=== PATIENT | male | born 1955 | race Caucasian/White ===

== ENCOUNTER 2017-01-28 08:22 | Day surgery (SDC) | payer OTHER ==
[2017-01-23 11:49] VITALS: BMI 30.9
[~2017-01-28 08:22] MED LIST: LACTATED RINGERS 1,000 ML IV SCH
[2017-01-28 09:21] VITALS: RESP 16; TEMP 98
[2017-01-28] MEDS ORDERED: fentaNYL (PF) 50 MCG/ML 2 ML AMP ONE (09:42)
[2017-01-28] MEDS ORDERED: PROPOFOL 10 MG/ML 20 ML VIAL IV ONE (09:42)
[2017-01-28] MEDS ORDERED: MIDAZOLAM 2 MG/2 ML VIAL ONE (09:42)
[2017-01-28] MEDS ORDERED: LIDOCAINE 1% INJ 10MG/ML (20 ML MDV) ONE (09:42)
--- NOTE | 2017-01-28 10:08 | P.PCN ---
Date of Procedure: 01/28/17 Preoperative Diagnosis: Postoperative Diagnosis: Procedure(s) Performed: Procedure: Total colonoscopy. Preoperative diagnosis: Screening for neoplasia. Postoperative diagnosis: Diverticulosis with no evidence of acute diverticulitis , strictures, polyps or cancer. Preparation: HalfLytely prep. Sedation: Was provided by anesthesia. Brief clinical history: The patient is a 61-year-old male who is referred for this evaluation for screening for neoplasia. He has no change in bowel habits or anemia. He has intermittent rectal bleeding which he attributes to hemorrhoids. The patient had 2 prior colonoscopies one around 8 years ago and one around 12 years ago. No family history of colon cancer or finding of polyps in the past. Procedure: With the patient on his left lateral decubitus position and after informed consent and adequate sedation, the perianal area was inspected and it did not show any fissures or fistulas. There were no masses felt on digital rectal examination. The Olympus CFQ 160L video colonoscope was then inserted in the rectum in the usual fashion and advanced to the cecum. There were few diverticular orifices seen scattered in the sigmoid and occasional small diverticular orifice was seen around the hepatic flexure but there was no evidence of acute diverticulitis or strictures. The mucosa appeared healthy. No polyps or tumors were seen. I retroflexed the endoscope in the rectum before the endoscope was withdrawn. Low-grade internal hemorrhoids were noted with no evidence of bleeding at the time of this exam. The patient tolerated the procedure well. Plan: The patient was reassured. Discussed dietary measures and local care for hemorrhoids. Further plans can be made based on his course. For colon cancer screening, I recommended repeat exam in 10 years. Implants: Indications for Procedure: Operative Findings: Description of Procedure:
[2017-01-28 10:24] VITALS: BP 132/85; PULSE 53
== END 2017-01-28 10:39 | disposition home or self-care (01) ==
LOC: ORWHC2ENDO 08:22
DX: Z12.11 Encounter for screening for malignant neoplasm of colon (principal); K57.30 Diverticulosis of large intestine without perforation or abscess without bleeding; K64.8 Other hemorrhoids; I10 Essential (primary) hypertension; E78.5 Hyperlipidemia, unspecified; I48.91 Unspecified atrial fibrillation; Z79.899 Other long term (current) drug therapy
CPT/HCPCS: J2250; J2001; J3010; J2704; G0121

== ENCOUNTER 2018-08-18 16:47 | Emergency (ER) | payer OTHER ==
[2018-08-18] MEDS ORDERED: DIPH,PERTUS(ACELL)TETVAC-LF 0.5 ML VIAL IM ONE (16:55)
[2018-08-18] MEDS ORDERED: AMOXIC-POT CLAV 875MG STARTER 2 EACH TABLET PO STA (16:55)
--- NOTE | 2018-08-18 17:32 | ED ---
Animal Bite HPI - General Chief Complaint: Animal Bite Stated Complaint: cat bite Time Seen by Provider: 08/18/18 16:54 Source: patient Mode of arrival: ambulatory Limitations: no limitations - History of Present Illness Initial Comments: 63-year-old male past history of hypertension presenting today for chief complaint of Bite. Patient states he was bit on his left hand near the base of thumb, he states it was a very small bite he feels is superficial. He states he has had this Was a stray for the past 7 days, he states it has been acting sick with upper respiratory symptoms and he was going to take it to the vet today when he attempted to put the cat in a cage. Bit his left hand. Patient called his secondary and who recommended presentation to the emergency department. Remainder of ROS (-) negative, patient denies any recent fever, chills, shortness of breath, chest pain, back pain, abdominal pain, nausea or vomiting, numbness or tingling, dysuria or hematuria, constipation or diarrhea, headaches or visual changes, or any other complaints. - Related Data Home Medications Medication Instructions Recorded Confirmed Aspirin [Adult Low Dose Aspirin EC] 81 mg PO BID 01/23/17 01/28/17 Cholecalciferol [Vitamin D3] 1,000 unit PO DAILY 01/23/17 08/18/18 Flecainide Acetate [Tambocor] 100 mg PO Q12HR 01/23/17 08/18/18 Krill Oil Cap 300 mg PO DAILY 01/23/17 08/18/18 Losartan/Hydrochlorothiazide 1 each PO DAILY 01/23/17 08/18/18 [Losartan-Hctz 100-12.5 mg Tab] Potassium Chloride [Klor-Con 20] 20 meq PO DAILY 01/23/17 08/18/18 Simvastatin [Zocor] 20 mg PO HS 01/23/17 08/18/18 Ubidecarenone [Co Q-10] 100 mg PO DAILY 01/23/17 08/18/18 amLODIPine [Norvasc] 5 mg PO DAILY 01/23/17 08/18/18 Allergies Allergy/AdvReac Type Severity Reaction Status Date / Time No Known Allergies Allergy Verified 08/18/18 16:51 Review of Systems ROS Statement: Those systems with pertinent positive or pertinent negative responses have been documented in the HPI. ROS Other: All systems not noted in ROS Statement are negative. Past Medical History Past Medical History: Atrial Fibrillation, Hyperlipidemia, Hypertension Additional Past Medical History / Comment(s): rectal bleeding, hx hemorrhoids, History of Any Multi-Drug Resistant Organisms: None Reported Past Surgical History: Heart Catheterization, Hernia Repair, Orthopedic Surgery , Tonsillectomy Additional Past Surgical History / Comment(s): rt knee surgery x 2, surgery for fx nose, Past Anesthesia/Blood Transfusion Reactions: Motion Sickness Additional Past Anesthesia/Blood Transfusion Reaction / Comment(s): "did not feel good coming out" of anesthesia Past Psychological History: No Psychological Hx Reported Smoking Status: Former smoker Past Alcohol Use History: Occasional Past Drug Use History: Marijuana - Past Family History Mother Family Medical History: Cancer Additional Family Medical History / Comment(s): melanoma General Exam - General Exam Comments Initial Comments: General: The patient is awake and alert, in no distress, and does not appear acutely ill. Eye: Pupils are equal, round and reactive to light, extra-ocular movements are intact. No nystagmus. There is normal conjunctiva bilaterally. No signs of icterus. Ears, nose, mouth and throat: There are moist mucous membranes and no oral lesions. Neck: The neck is supple, there is no tenderness or JVD. Cardiovascular: There is a regular rate and rhythm. No murmur, rub or gallop is appreciated. Respiratory: Lungs are clear to auscultation, respirations are non-labored, breath sounds are equal. No wheezes, stridor, rales, or rhonchi. Musculoskeletal: Normal ROM, no tenderness. Strength 5/5. Sensation intact. Pulses equal bilaterally 2+. Neurological: A&O x 3. CN II-XII intact, There are no obvious motor or sensory deficits. Coordination appears grossly intact. Speech is normal. Skin: Skin is warm and dry and no rashes. Small pinpoint bite at the MTP joint of the left hand thumb. No active bleeding, appears superficial, no surrounding erythema. Psychiatric: Cooperative, appropriate mood & affect, normal judgment. Limitations: no limitations Course Vital Signs 08/18/18 08/18/18 16:49 20:15 Temperature 98.0 F 97.9 F Pulse Rate 68 75 Respiratory 18 17 Rate Blood Pressure 178/105 172/105 O2 Sat by Pulse 99 99 Oximetry Medical Decision Making - Medical Decision Making Patient's tetanus updated. Given unwell appearance of cat rabies prophylaxis administered, imcluding human immune globulin and vaccination. Patient given prescription for follow-up injections. Patient instructed to take the cat to the water quality assistant for quarantine and further evaluation. Pt agreeable with plan. Pt started on abx. Risk/signs of infection discussed, return parameters discussed. Discussed case with attending provider agree with the impression and plan. Pt discharged in stable condition appearing well. Case discussed in detail Dr. Marcelino who agrees with impression and plan. Disposition Clinical Impression: Cat bite, Need for post exposure prophylaxis for rabies Disposition: HOME SELF-CARE Instructions: Rabies Immune Globulin (By injection), Animal Bite (ED) Additional Instructions: Please use medication as discussed. Please follow-up with family doctor in the next 2 days. Please return to hospital, pediatric floor for post exposure of prophlaxyis on Day 3 (08/21), Day 7 and Day 14. Please keep cat quarantined for the next 10 days and seen by water quality assistant. Please return to emergency room if the symptoms increase or worsen or for any other concerns. Is patient prescribed a controlled substance at d/c from ED?: No Referrals: None,Stated [Primary Care Provider] - 1-2 days [facility] [NON-STAFF] - 1-2 days Time of Disposition: 17:31
[2018-08-18] MEDS ORDERED: RABIES IMMUNE GLOB 150 UNIT/ML 10 ML VIAL IM ONE (17:56)
[2018-08-18] MEDS ORDERED: RABIES VACC,HUMAN DIPLOID (PF) 2.5 UNIT KIT IM ONE (18:25)
[2018-08-18 20:26] VITALS: BP 172/105; PULSE 75; RESP 17; TEMP 97.9
== END 2018-08-18 20:17 | disposition home or self-care (01) ==
LOC: EC 16:47
DX: S61.052A Open bite of left thumb without damage to nail, initial encounter (principal); Z20.3 Contact with and (suspected) exposure to rabies; Z23 Encounter for immunization; E78.5 Hyperlipidemia, unspecified; I10 Essential (primary) hypertension; I48.91 Unspecified atrial fibrillation; Z79.82 Long term (current) use of aspirin; Z79.899 Other long term (current) drug therapy; Z95.5 Presence of coronary angioplasty implant and graft; Z87.891 Personal history of nicotine dependence; W55.01XA Bitten by cat, initial encounter
CPT/HCPCS: 90375; 90471; 90675; 90715; 96372; 99283

== ENCOUNTER → 2024-06-21 | Outpatient (CLI) | payer MEDICARE ==
[2024-06-21 15:04] LABS: Basophils # (A) 0.01 X 10*3/uL (0.00-0.10); Basophils % (A) 0.3 %; Eosinophils # (A) 0.22 X 10*3/uL (0.04-0.35); HCT 45.9 % (39.6-50.0); HGB 15.6 g/dL (13.0-17.0); Lymphocytes # (A) 1.26 X 10*3/uL (0.90-5.00); Lymphocytes % (A) 34.2 %; MCH 32.3 pg (27.0-32.0); Mean Platelet Volume 10.1 FL (9.5-12.2); Monocytes # (A) 0.32 X 10*3/uL (0.20-1.00); Monocytes % (A) 8.7 %; NRBC Per 100 WBC 0 X 10*3/uL (0.00-0.01); Neutrophils # (A) 1.86 X 10*3/uL (1.80-7.70); Neutrophils % (A) 50.5 %; Platelet Count 186 X 10*3/uL (140-440); RBC 4.83 X 10*6/uL (4.40-5.60); WBC 3.68 X 10*3/uL (4.50-10.00)
== END | disposition home or self-care (01) ==
LOC: LABPAT 09:10
PROVIDERS: ATTEND Surgery
DX: Z01.818 Encounter for other preprocedural examination (principal); I48.91 Unspecified atrial fibrillation; K40.90 Unilateral inguinal hernia, without obstruction or gangrene, not specified as recurrent; R94.31 Abnormal electrocardiogram [ECG] [EKG]
CPT/HCPCS: 36415; 85025; 86850; 86900; 86901; 93005

== ENCOUNTER 2024-06-29 07:57 | Day surgery (SDC) | payer MEDICARE, OTHER ==
[~2024-06-29 07:57] MED LIST changes: +HYDROmorphone 0.5 MG/0.5 ML SYRINGE IVP PRN; -LACTATED RINGERS 1,000 ML IV SCH; +LIDOCAINE 1% (10MG/ML) FOR IV START INTRADERMA PRN; +fentaNYL (PF) 50 MCG/ML 2 ML AMP IVP PRN
[2024-06-29] MEDS: IV FLUID CONTINUATION 1,000 ML IV ONE ×2 (08:27→12:05)
[2024-06-29 09:06] VITALS: RESP 16
[2024-06-29] MEDS: LACTATED RINGERS 1,000 ML IV SCH (09:07)
[2024-06-29] MEDS: DEXAMETHASONE SOD PHOSPHATE 4 MG/ML 1 ML VIAL IV ONE (09:07)
[2024-06-29] MEDS: ACETAMINOPHEN TAB 500 MG TAB PO PRN (09:07)
[2024-06-29] MEDS: ONDANSETRON 4 MG/2 ML VIAL IVP ONE (09:08)
[2024-06-29] MEDS: HEPARIN SODIUM,PORCINE 5,000 UNIT/ML 1 ML VIAL SQ PRN (09:08)
[2024-06-29] MEDS: MIDAZOLAM 2 MG/2 ML VIAL IV PRN (09:35)
--- NOTE | 2024-06-29 10:21 | P.ANPRN ---
Procedure Note - Anesthesia - Nerve Block Performed Bilateral Transversus Abdominis Single Date of Procedure: 06/29/24 Procedure Start Time: 09:35 Procedure Stop Time: 09:46 Indication: Acute Post-Operative Pain, Requested by Surgeon Sedation Type: Sedate with meaningful contact maintained Preparation: Sterile Prep Position: Supine Needle Gauge: 21 Ultrasound used to visualize needle placement: Yes Ultrasound used to observe medication spread: Yes Injectate: 0.5% Ropivacaine (see comment for volume) Blood Aspirated: No Pain Paresthesia on Injection Noted: No Resistance on Injection: Normal Image Stored and Saved: Yes Events: Uneventful and Well Tolerated (Ropivacaine 0.5% 30 mls diluted with 20 mls of NS, 25 mls were given on each side with a total of 8 mgs of Decadron.)
[2024-06-29] MEDS ORDERED: ROCURONIUM 10 MG/ML (5 ML VIAL) IV ONE (10:27)
[2024-06-29] MEDS ORDERED: DEXAMETHASONE SOD PHOSPHATE 4 MG/ML 1 ML VIAL ONE (10:27)
[2024-06-29] MEDS ORDERED: SUCCINYLCHOLINE CHLORIDE 200 MG/10 ML VIAL IV ONE (10:27)
[2024-06-29] MEDS ORDERED: NEOSTIGMINE 1 MG/ML 10 ML VIAL ONE (10:27)
[2024-06-29] MEDS ORDERED: ROPIVACAINE 5 MG/ML 30 ML VIAL ONE (10:27)
[2024-06-29] MEDS ORDERED: SUGAMMADEX SODIUM 100 MG/ML SYR IV ONE (10:27)
[2024-06-29] MEDS ORDERED: GLYCOPYRROLATE 0.2 MG/ML 2 ML VIAL ONE (10:27)
[2024-06-29] MEDS ORDERED: SODIUM CHLORIDE 0.9% (PF) 10 ML VIAL ONE (10:27)
[2024-06-29] MEDS ORDERED: PROPOFOL 10 MG/ML 20 ML VIAL IV ONE (10:27)
[2024-06-29] MEDS ORDERED: LIDOCAINE 1% INJ 10MG/ML (20 ML MDV) ONE (10:27)
[2024-06-29] MEDS ORDERED: KETOROLAC 15 MG/ML 1 ML VIAL ONE (10:27)
[2024-06-29] MEDS ORDERED: KETAMINE HCL IN 0.9 % NACL 50 MG/5 ML SYRINGE ONE (10:27)
[2024-06-29] MEDS ORDERED: fentaNYL (PF) 50 MCG/ML 2 ML AMP ONE (10:27)
[2024-06-29] MEDS: LIDOCAINE 1%-EPI 1:100,000 20 ML VIAL SQ ONE (10:53)
[2024-06-29] MEDS: LACTATED RINGERS 1,000 ML IV ONE (10:54)
--- NOTE | 2024-06-29 11:25 | P.OP ---
Date of Procedure: 06/29/24 Preoperative Diagnosis: Right inguinal hernia Postoperative Diagnosis: Right inguinal hernia Procedure(s) Performed: Laparoscopic robotic repair of right inguinal hernia Transversus abdominis plane block Anesthesia: KATHIE Surgeon: Evangelist Masters Estimated Blood Loss (ml): 5 Pathology: none sent Condition: stable Disposition: PACU Description of Procedure: The patient's placed on the operating table in the supine position. The patient received general anesthesia. The patient's abdomen was prepped and draped in usual sterile fashion. The skin was anesthetized 1% local Xylocaine at the incision sites. Using an 11 blade a skin incision was made at the umbilicus. The fascia was grasped with a Jermain and then the peritoneal cavity was entered with the Veress needle. Position of the Veress needle was confirmed with a positive drop test. After adequate insufflation a 5 mm trocar was placed into the peritoneal cavity. The Laparoscope was placed the peritoneal cavity. And a robotic 8 mm trocar was placed in the right lateral position and then another 8 mm robotic trochars placed in the left lateral position. The original 5 mm trocar was exchanged for a 12 mm trocar. The patient was placed in reverse Trendelenburg and then the patient was docked to the robot. A four-quadrant transversus abdominis plane block was performed with 1% local Xylocaine. Next the peritoneum over top of the hernia was incised and then using blunt and sharp dissection and electrocautery the hernia sac was dissected free from the floor of the inguinal canal. The hernia sac was completely reduced into the peritoneal cavity. And then using the Pro office machines wirer mesh the hernia was repaired. The peritoneum was then sutured with 20V lock suture. The patient was then undocked the robot. The needle was withdrawn from the peritoneal cavity. The umbilical trocar site was closed with 0 Ethibond suture. The skin was closed interrupted 3-0 Monocryl suture. Dermabond dressing was applied. Patient was sent to recovery in stable condition.
[2024-06-29 11:44] VITALS: TEMP 97.6
[2024-06-29 13:02] VITALS: BP 117/71; PULSE 114
== END 2024-06-29 14:05 | disposition home or self-care (01) ==
LOC: OR 07:57
PROVIDERS: ATTEND Surgery
DX: K40.90 Unilateral inguinal hernia, without obstruction or gangrene, not specified as recurrent (principal); G89.18 Other acute postprocedural pain; I48.91 Unspecified atrial fibrillation; I10 Essential (primary) hypertension; J45.909 Unspecified asthma, uncomplicated; K21.9 Gastro-esophageal reflux disease without esophagitis; R94.31 Abnormal electrocardiogram [ECG] [EKG]; Z79.01 Long term (current) use of anticoagulants; Z79.899 Other long term (current) drug therapy
CPT/HCPCS: 49650; S2900; 64488

== ENCOUNTER 2024-07-04 12:58 | Emergency (ER) | payer MEDICARE ==
[2024-07-04 13:04] VITALS: RESP 18; TEMP 98.1
--- NOTE | 2024-07-04 13:08 | ED ---
General Adult HPI - General Chief complaint: Recheck/Abnormal Lab/Rx Stated complaint: Post Op Site Red Time Seen by Provider: 07/04/24 13:07 Source: patient Mode of arrival: ambulatory Limitations: no limitations - History of Present Illness Initial comments: Stephen is a [id number] gentleman who presents to the emergency department today via private vehicle for a postoperative wound check. Patient states that he had a da Juan David hernia repair on Friday of this week he been doing well postoperatively. Patient states he went to take a shower this morning and noted that the area around each incision was stained and or just red color he does not recall looking this color immediately postop so came to the ER for check. Patient reports there is no pain no tenderness no nausea vomiting no constipation or diarrhea he has been doing well he was only concerned about the skin color changes. - Related Data Home Medications Medication Instructions Recorded Confirmed Cholecalciferol [Vitamin D3] 2,000 unit PO BID 01/23/17 06/29/24 amLODIPine [Norvasc] 5 mg PO DAILY 01/23/17 06/29/24 Albuterol Inhaler [Ventolin Hfa 1 - 2 puff INHALATION Q6H PRN 06/22/24 06/29/24 Inhaler] Apixaban [Eliquis] 5 mg PO BID 06/22/24 06/29/24 Ascorbic Acid [Vitamin C] 500 mg PO DAILY 06/22/24 06/29/24 Cyanocobalamin [Vitamin B-12] 1 tab PO DAILY 06/22/24 06/29/24 Doxazosin [Cardura] 4 mg PO HS 06/22/24 06/29/24 Doxazosin [Cardura] 8 mg PO QAM 06/22/24 06/29/24 Losartan [Cozaar] 100 mg PO DAILY 06/22/24 06/29/24 Magnesium 300 mg PO BID 06/22/24 06/29/24 Thiamine HCl [Vitamin B-1] 1 tab PO DAILY 06/22/24 06/29/24 Zinc Gluconate [Zinc] 25 mg PO DAILY 06/22/24 06/29/24 Previous Rx's Medication Instructions Recorded Acetaminophen Tab [Tylenol] 650 mg PO Q6H #30 tab 06/29/24 Docusate [Colace] 100 mg PO BID #20 capsule 06/29/24 Ibuprofen [Motrin] 600 mg PO Q6HR PRN #40 tab 06/29/24 oxyCODONE HCL [OxyIR] 5 mg PO Q6H PRN 3 Days #10 tab 06/29/24 Allergies Allergy/AdvReac Type Severity Reaction Status Date / Time No Known Allergies Allergy Verified 07/04/24 13:01 Review of Systems ROS Statement: Those systems with pertinent positive or pertinent negative responses have been documented in the HPI. ROS Other: All systems not noted in ROS Statement are negative. Past Medical History Past Medical History: Atrial Fibrillation, Hyperlipidemia, Hypertension Additional Past Medical History / Comment(s): rectal bleeding, hx hemorrhoids, History of Any Multi-Drug Resistant Organisms: None Reported Past Surgical History: Heart Catheterization, Hernia Repair, Orthopedic Surgery, Tonsillectomy Additional Past Surgical History / Comment(s): rt knee surgery x 2, surgery for fx nose, Past Anesthesia/Blood Transfusion Reactions: Motion Sickness Additional Past Anesthesia/Blood Transfusion Reaction / Comment(s): "did not feel good coming out" of anesthesia Past Psychological History: No Psychological Hx Reported Smoking Status: Former smoker Past Alcohol Use History: Occasional Past Drug Use History: Marijuana - Past Family History Mother Family Medical History: Cancer Additional Family Medical History / Comment(s): melanoma Father Family Medical History: CVA/TIA Brother(s) Family Medical History: AFIB, CVA/TIA General Exam - General Exam Comments Initial Comments: Physical Exam GENERAL: Patient is well-developed and well-nourished. Patient is nontoxic and well-hydrated and is in no distress. HENT: Normocephalic, Atraumatic. EYES: PERRL, EOMI PULMONARY: Unlabored respirations. CARDIOVASCULAR: RRR Warm and well perfused extremities ABDOMEN: Non-distended SKIN: Postoperative laparoscopic incisions, appropriate bruising Surrounding the dressings have some orange discoloration consistent with an oxidized iodine or colored prep -coloration removes when the tape is pulled off of the skin : Deferred NEUROLOGIC: Alert and oriented Normal speech Normal gait MUSCULOSKELETAL: Moving all extremities with no apparent injury PSYCHIATRIC: No SI/HI Limitations: no limitations Course Vital Signs 07/04/24 13:01 Temperature 98.1 F Pulse Rate 52 L Respiratory 18 Rate Blood Pressure 121/83 O2 Sat by Pulse 96 Oximetry Medical Decision Making - Medical Decision Making Was pt. sent in by a medical professional or institution (BENJAMIN Berg, FORESTRY SUPPORT SPECIALIST, urgent care, hospital, or fci...) When possible be specific @ -No Did you speak to anyone other than the patient for history (EMS, parent, family, police, friend...)? What history was obtained from this source @ -No Did you review nursing and triage notes (agree or disagree)? Why? @ -I reviewed and agree with nursing and triage notes Were old charts reviewed (outside hosp., previous admission, EMS record, old EKG, old radiological studies, urgent care reports/EKG's, fci records)? Report findings @ -No old charts were reviewed Differential Diagnosis (chest pain, altered mental status, abdominal pain women, abdominal pain men, vaginal bleeding, weakness, fever, dyspnea, syncope, headache, dizziness, GI bleed, back pain, seizure, CVA, palpatations, mental health)? @ -Differential includes infection, bruising, patient from prep, reaction to adhesive for prep EKG interpreted by me (3pts min.). @ -As above X-rays interpreted by me (1pt min.). @ -None done CT interpreted by me (1pt min.). @ -None done U/S interpreted by me (1pt. min.). @ -None done What testing was considered but not performed or refused? (CT, X-rays, U/S, labs)? Why? @ -None What meds were considered but not given or refused? Why? @ -None Did you discuss the management of the patient with other professionals (professionals i.e. BENJAMIN Berg, FORESTRY SUPPORT SPECIALIST, lab, RT, psych nurse, social work instructor, gas attendant, teacher, security control room officer, case filler)? Give summary @ -No Was smoking cessation discussed for >3mins.? @ -No Was critical care preformed (if so, how long)? @ -No Were there social determinants of health that impacted care today? How? (Ho melessness, low income, unemployed, alcoholism, drug addiction, transportation, low edu. Level, literacy, decrease access to med. care, fci, rehab)? @ -No Was there de-escalation of care discussed even if they declined (Discuss DNR or withdrawal of care, Hospice)? DNR status @ -No What co-morbidities impacted this encounter? (DM, HTN, Smoking, COPD, CAD, Cancer, CVA, ARF, Chemo, Hep., AIDS, mental health diagnosis, sleep apnea, morbid obesity)? @ -None Was patient admitted / discharged? Hospital course, mention meds given and route, prescriptions, significant lab abnormalities, going to OR and other pertinent info. @ -Discharged Evaluated physical exam reveals some discoloration of the patient's abdominal skin this discoloration is consistent with the prep or antiseptic from the surg elaina. When the tape around the dressing was removed the discoloration removed and was adhered to the tape was reassured by this comfortable plan for discharge home and outpatient follow-up with his surgeon as scheduled. Undiagnosed new problem with uncertain prognosis? @ -No Drug Therapy requiring intensive monitoring for toxicity (Heparin, Nitro, Insulin, Cardizem)? @ -No Were any procedures done? @ -No Diagnosis/symptom? @ -Post Operative wound check Acute, or Chronic, or Acute on Chronic? @ -Default Uncomplicated (without systemic symptoms) or Complicated (systemic symptoms)? @ -Default Side effects of treatment? @ -No Exacerbation, Progression, or Severe Exacerbation? @ -No Poses a threat to life or bodily function? How? (Chest pain, [place], [place], pneumonia, PE, COPD, DKA, ARF, appy, cholecystitis, CVA, Diverticulitis, Homicidal, Suicidal, threat to staff... and all critical care pts) @ -No Disposition Clinical Impression: Encounter for post surgical wound check Disposition: HOME SELF-CARE Condition: Stable Additional Instructions: Follow up with Dr Nash as planned Is patient prescribed a controlled substance at d/c from ED?: No Referrals: Elton Ocasio MD [Primary Care Provider] - 1-2 days
[2024-07-04 14:03] VITALS: BP 111/78; PULSE 60
== END 2024-07-04 14:02 | disposition home or self-care (01) ==
LOC: EC 12:58
DX: Z48.00 Encounter for change or removal of nonsurgical wound dressing (principal); Z87.891 Personal history of nicotine dependence
CPT/HCPCS: 99283